=== PATIENT | female | born 1975 | race Caucasian/White ===

== ENCOUNTER 2022-04-15 00:21 | Emergency (ER) | payer OTHER, MEDICAID, SELFPAY ==
[2022-04-15 00:30] VITALS: BP 165/96; PULSE 71; RESP 16; TEMP 36.7; O2SAT 100
--- NOTE | 2022-04-15 00:37 | ED.GENADUL_ITS ---
Discharge Plan Disposition Patient Disposition: HOME Condition: Good Discharge Details Clinical Impression: Pain, dental ED Provider: Camron Davila Home Meds and New Rx's Prescriptions: New clindamycin HCl 150 mg capsule 450 mg PO TID 7 Days Qty: 63 0RF Discharge Instructions Instructions: Toothache (ED) Additional Instructions: The block we administered should help improve your pain. Please take 800 mg of ibuprofen every 6 hours and 1000 mg of Tylenol every 6 hours to help with the inflammation and pain. These are the maximum doses. Please take the antibiotic as directed to help with the infection in your tooth. Please use the dental list that we have provided to contact the dentist for prompt follow-up and evaluation for tooth removal. If you notice any worsening of your symptoms, or any new symptoms such as difficulty swallowing, difficulty breathing, vomiting, diarrhea, fever, chills, shortness of breath, chest pain, numbness, weakness, or fainting , please return immediately to the emergency department for reevaluation. Please follow up with your primary care provider as soon as possible for reassessment and reevaluation. As always, it was a pleasure participating in your medical care today. Medical Decision Making 46-year-old female presents today for evaluation of left lower dental pain. The patient states that for the last week she has had this pain. She has not yet been able to see a dentist. She denies any difficulty swallowing or drinking. She has been taking Tylenol but it has not been helping. She has not started on any antibiotics. No other complaints at this time. No other modifying factors. Poor dentition of the posterior left lower molar. No evidence of periapical abscess. No evidence of Ludewig's angina. Patient elected for dental block. Dental block was administered. Patient had complete resolution of her pain. We will start on clindamycin secondary to her allergies. Discussed red flags which to return. I have extensively reviewed the treatment plan and discharge instructions with the patient. I have addressed all patient concerns at this time. The patient was made aware of what symptoms to monitor for that would warrant a return to the emergency department. Discussed the plan with the patient, they demonstrate verbal understanding and agreement with our assessment and plan at this time. The documentation in this chart was dictated using [employer] dictation software. Please excuse any dictation errors. HPI General Date/Time Provider Initiated Documentation: 04/15/22 00:37 . HPI Narrative: 46-year-old female presents today for evaluation of left lower dental pain. The patient states that for the last week she has had this pain. She has not yet been able to see a dentist. She denies any difficulty swallowing or drinking. She has been taking Tylenol but it has not been helping. She has not started on any antibiotics. No other complaints at this time. No other modifying factors. Related Data Home Medications Medication Instructions Recorded Confirmed clindamycin HCl 150 mg capsule 450 mg PO TID 7 days #63 caps 04/15/22 duloxetine 60 mg capsule,delayed 120 mg PO DAILY 04/15/22 04/15/22 release sprinkle epinephrine 0.3 mg/0.3 mL PRN 04/15/22 injection, auto-injector norethindrone acetate 5 mg tablet 5 mg PO DAILY 04/15/22 04/15/22 topiramate 25 mg tablet 25 mg PO BID 04/15/22 04/15/22 valacyclovir 1 gram tablet 1,000 mg PO DAILY 04/15/22 04/15/22 Previous Rx's Medication Instructions Recorded clindamycin HCl 150 mg capsule 450 mg PO TID 7 days #63 caps 04/15/22 Allergies Allergy/AdvReac Type Severity Reaction Status Date / Time acetaminophen [From Vicodin] Allergy Unverified 04/15/22 00:33 erythromycin base Allergy Unverified 04/15/22 00:33 hydrocodone [From Vicodin] Allergy Unverified 04/15/22 00:33 Penicillins Allergy Unverified 04/15/22 00:32 Sulfa (Sulfonamide Allergy Unverified 04/15/22 00:32 Antibiotics) General Stated Complaint: DentalOral ROXANNA: 4 Review of Systems All systems reviewed & are unremarkable except as noted in HPI and below PFSH All Active Problems Pain, dental (Acute) Social History Smoking/Tobacco Use Status: Never Smoking risk assessment performed?: Yes Substance use type: does not use Exam Narrative Exam Narrative: 1.Const: Well-nourished, Well-developed, appearing stated age 2.Eyes: PERRL, no conjunctival injection, and symmetrical lids. 3.ENT: Atraumatic external nose and ears. Moist MM. Neck: Symmetric, trachea midline, No thyromegaly. Poor dentition for the posterior left lower molars. No evidence of a periapical abscess. 4.CVS: +S1/S2, No murmurs or gallops. Peripheral pulses 2+ and equal in all extremities. Brisk capillary refill in all extremities. 5.RESP: Unlabored respiratory effort. Clear to auscultation bilaterally. No wheezes rales or rhonchi 6.GI: Soft, Nontender/Nondistended, No hepatosplenomegaly. No guarding or rebound. 7.MSK: Normocephalic/Atraumatic, Extremities w/o deformity or ttp No cyanosis or clubbing, Normal movement of all extremities 8.Skin: Warm, Dry. No rashes or lesions. 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 Sensation grossly intact, no focal neurologic deficits. 10.Psych: (AAO) x3. Appropriate mood and affect For Course Vital Signs Vital signs: Vital Signs Temperature 36.7 C 04/15/22 00:30 Pulse 71 04/15/22 00:30 Respiratory Rate 16 04/15/22 00:30 Blood Pressure 165/96 H 04/15/22 00:30 Pulse Oximetry 100 04/15/22 00:30 Temperature 36.7 C 04/15/22 00:30 Temperature Source Tympanic 04/15/22 00:30 Pulse 71 04/15/22 00:30 Respiratory Rate 16 04/15/22 00:30 Respiratory Effort 04/15/22 00:30 Blood Pressure 165/96 H 04/15/22 00:30 Blood Pressure Position Sitting 04/15/22 00:30 Pulse Oximetry 100 04/15/22 00:30 Pain Level 9 04/15/22 00:30 Procedures Nerve Block Nerve Block 1: Time out performed: Yes Local Anesthetic: Bupivicaine 0.5% Amount of anesthesia used (mL): 5 Side: left Intraoral Nerve Block: inferior alveolar Procedure Successful: Yes Patient Tolerated Procedure: well and no complications Complications: none
[2022-04-15] MEDS: Clindamycin 150 MG CAP, 12 CAPS/BTL 450 MG PO (00:40)
[2022-04-15] MEDS: Ibuprofen 800 MG TAB 1600 MG PO (00:40)
== END 2022-04-15 00:54 | disposition home or self-care (01) ==
LOC: ER 00:52
PROVIDERS: Emergency Provider Student in an Organized Health Care Education/Training Program; PCP Student in an Organized Health Care Education/Training Program
DX: K08.89 Other specified disorders of teeth and supporting structures (principal)
CPT/HCPCS: 64400; 99283; 99284

== ENCOUNTER 2022-06-01 20:26 | Emergency (ER) | payer OTHER, MEDICAID, SELFPAY ==
[2022-06-01 20:33] VITALS: BP 180/136; PULSE 88; RESP 16; TEMP 36.9; O2SAT 97
--- NOTE | 2022-06-01 21:21 | ED.GENADUL_ITS ---
Discharge Plan Disposition Patient Disposition: Home Condition: Improving Discharge Details Clinical Impression: Pain, dental Primary Care Provider: Samra Pardo ED Provider: Selvin Soria Home Meds and New Rx's Prescriptions: Continued valacyclovir 1 gram Tablet 1,000 mg PO DAILY topiramate 25 mg Tablet 25 mg PO BID norethindrone acetate 5 mg Tablet 5 mg PO DAILY epinephrine 0.3 mg/0.3 mL Auto-Injector PRN duloxetine 60 mg Capsule, Delayed Rel Sprinkle 120 mg PO DAILY Medical Decision Making 47-year-old female, smoker, presents for 1 month history of left dental pain, on clindamycin for the past 10 days, worsening pain over the past 24 hours. Lyvq-qtx-bifajup medications not helping with symptoms. She is scheduled to see her dentist tomorrow morning at 9 AM. Clinically she appears well, nontoxic, afebrile, no trismus, airway is patent, no obvious dental abscess. Discussed options, she is agreeable to a dental block. Dental block performed with success. Patient reports feeling much improvement. Will provide viscous lidocaine to go home with so she may use overnight if symptoms were to return. Otherwise she will follow-up with her dentist tomorrow morning as already scheduled I was later told that the patient was reporting that her pain was not resolved completely but had improved. We were waiting for the take-home pack of the viscous lidocaine to be brought down. I did request that her blood pressure be rechecked. When the RN went to check the blood pressure she stated that she did not want to have her blood pressure checked as she figures it would be high given the pain she was in. She did not want to wait for written discharge instructions. This documentation was generated using [employer] system, please disregard any oddities of phrase or misspellings. Medical Records Medical records reviewed: Yes I reviewed the patient's medical records. Sign Out No HPI General Mode of arrival: ambulatory . Date/Time Provider Initiated Documentation: 06/01/22 21:00 . Limitations to Documentation: no limitations . Information obtained by: patient and family . History of Present Illness 47 year old F presents to the emergency department with the chief complaint of L sided dental pain, described as severe, with intensity rated at 10. Quality is described as aching, and is localized to the mouth (left lower). Patient reports no radiation. Patient started experiencing this month(s) (worse x 1 day) and it has been constant. No relieving factors improve symptom(s), No exacerbating factors reported . Patient notes no other symptoms.. Patient did receive the following treatments prior to arrival, other (clindamycin, seeing dentist tomorrow) Related Data Home Medications Medication Instructions Recorded Confirmed duloxetine 60 mg capsule,delayed 120 mg PO DAILY 04/15/22 06/01/22 release sprinkle epinephrine 0.3 mg/0.3 mL PRN 04/15/22 injection, auto-injector norethindrone acetate 5 mg tablet 5 mg PO DAILY 04/15/22 06/01/22 topiramate 25 mg tablet 25 mg PO BID 04/15/22 06/01/22 valacyclovir 1 gram tablet 1,000 mg PO DAILY 04/15/22 06/01/22 Allergies Allergy/AdvReac Type Severity Reaction Status Date / Time acetaminophen [From Vicodin] Allergy Unverified 06/01/22 20:37 erythromycin base Allergy Unverified 06/01/22 20:37 hydrocodone [From Vicodin] Allergy Unverified 06/01/22 20:37 Penicillins Allergy Unverified 06/01/22 20:37 Sulfa (Sulfonamide Allergy Unverified 06/01/22 20:37 Antibiotics) General Stated Complaint: DentalOral ROXANNA: 4 Review of Systems Constitutional Constitutional: Denies fever(s) ENT Ears, Nose, Mouth, and Throat: Reports mouth pain, Denies neck pain and Denies sore throat Cardiovascular Cardiovascular: Denies chest pain and Denies dyspnea Respiratory Respiratory: Denies dyspnea Gastrointestinal Gastrointestinal: Denies abdominal pain Musculoskeletal Musculoskeletal: Denies neck pain Integumentary/Breasts Skin/Breast: Denies rash PFSH All Active Problems (Updated 06/01/22 @ 23:18 by BRIANA Pretty) Pain, dental (Acute) Social History Smoking/Tobacco Use Status: Never Smoking risk assessment performed?: Yes Substance use type: does not use Exam Const General: cooperative, healthy appearing, comfortable and no acute distress Orientation: alert and awake HENOR Head: normal to inspection, normocephalic and atraumatic General nose exam: external nose normal Face and sinus: normal facial exam Mouth: moist mucous membranes Teeth image: 1. Tenderness, multiple dental carry-decay down to the buccal mucosa. Airway is patent. No trismus. No obvious pointing abscess or drainage. Throat: posterior oropharynx normal Eyes General: appearance normal, both eyes and all related structures Conjunctivae: conjunctivae normal Neck Neck: normal visual inspection, full ROM, no lymphadenopathy, no meningeal signs, trachea midline, supple and nontender Resp Effort & Inspection: normal respiratory effort and able to speak in complete sentences Skin General skin exam: no rashes or lesions noted Neuro General: patient alert, patient awake, moves all extremities and no focal motor deficits Sensory Exam: no sensory deficits noted Psych Appearance: grossly normal Mental Status: mental status grossly normal Course Vital Signs Vital signs: Vital Signs Temperature 36.9 C 06/01/22 20:33 Pulse 88 06/01/22 20:33 Respiratory Rate 16 06/01/22 20:33 Blood Pressure 180/136 H 06/01/22 20:33 Pulse Oximetry 97 06/01/22 20:33 Temperature 36.9 C 06/01/22 20:33 Temperature Source Temporal Artery Scan 06/01/22 20:33 Pulse 88 06/01/22 20:33 Respiratory Rate 16 06/01/22 20:33 Respiratory Effort 06/01/22 20:33 Blood Pressure 180/136 H 06/01/22 20:33 Blood Pressure Position Sitting 06/01/22 20:33 Pulse Oximetry 97 06/01/22 20:33 Oxygen Delivery Method Room Air 06/01/22 20:33 Oxygen Flow Rate 0 06/01/22 20:33 Pain Level 10 06/01/22 21:18 Procedures Nerve Block Nerve Block 1: Time out performed: Yes Local Anesthetic: Lidocaine 2%, Bupivicaine 0.5% and other anesthetic ([id number] mixture) Amount of anesthesia used (mL): 3 Side: left Intraoral Nerve Block: inferior alveolar Procedure Successful: Yes Patient Tolerated Procedure: well and no complications Complications: none
[2022-06-01] MEDS: Lidocaine 2% Viscous 15 ML CUP PO (21:45)
== END 2022-06-01 22:07 | disposition home or self-care (01) ==
PROVIDERS: Emergency Provider Physician Assistant; PCP Student in an Organized Health Care Education/Training Program
DX: K08.89 Other specified disorders of teeth and supporting structures (principal)
CPT/HCPCS: 64400

== ENCOUNTER 2022-08-01 20:21 | Emergency (ER) | payer OTHER, MEDICAID, SELFPAY ==
[2022-08-01 20:24] VITALS: BP 138/77; PULSE 83; RESP 16; TEMP 36.9; O2SAT 100
[2022-08-01] MEDS: Normal Saline 1,000 ML 1000 ML IV (20:50)
[2022-08-01] MEDS: Ketorolac 15 MG/ML VIAL IVP (20:50)
[2022-08-01] MEDS: methylPREDNISolone SUCC 125 MG VIAL IVP (20:55)
[2022-08-01] MEDS: diphenhydrAMINE 50 MG/ML VIAL 25 MG IVP (20:56)
[2022-08-01] MEDS: Prochlorperazine 10 MG/2 ML VIAL IVP (21:06)
[2022-08-01] MEDS: ACETAMINOPHEN 1,000 MG/100 ML BTL 400 MG IVPB (21:10)
--- NOTE | 2022-08-01 21:45 | W.ED.GENAD ---
Discharge Plan Disposition Patient Disposition: Home Condition: Good Discharge Details Chief Complaint: Headache Clinical Impression: Migraine headache Primary Care Provider: Samra Pardo ED Provider: Camron Davila Home Meds and New Rx's Prescriptions: No Action valacyclovir 1 gram Tablet 1,000 mg PO DAILY topiramate 25 mg Tablet 25 mg PO BID norethindrone acetate 5 mg Tablet 5 mg PO DAILY epinephrine 0.3 mg/0.3 mL Auto-Injector PRN duloxetine 60 mg Capsule, Delayed Rel Sprinkle 120 mg PO DAILY propranolol 60 mg capsule,extended release 24 hr 60 mg PO DAILY Label Comments: TAKE ONE CAPSULE BY MOUTH EVERY DAY Discharge Instructions Instructions: General Headache (ED) Additional Instructions: At this time your headache appears consistent with a migraine headache. Please stay well-hydrated, take Tylenol and Motrin as needed for pain. Avoid foods that are heavy and nitrates and nitrates. If you notice any worsening of your symptoms, or any new symptoms such as vomiting, diarrhea, fever, chills, shortness of breath, chest pain, numbness, weakness, or fainting , please return immediately to the emergency department for reevaluation. Please follow up with your primary care provider as soon as possible for reassessment and reevaluation. As always, it was a pleasure participating in your medical care today. Referrals: Samra Pardo [Primary Care Provider] - Medical Decision Making 47-year-old female with a past medical history of chronic migraines which she has had a notable work-up within the past few years, performed in [facility], which included imaging, who presents today for evaluation of headache. Patient states that her headache began this morning when she woke up, it was gradual in onset. It worsened throughout the day. She describes it as an achy pressure sensation in the front of her head. Worsened with lights and loud noises. She states that it is identical in nature and consistency to her previous headaches. She denies any neck pain or fever. The patient denies any headache red flags of worst headache of life, thunderclap headache, neck pain, fever, chills, concerning family history of polycystic kidney disease, Marfan syndrome, Sylvia-Danlos syndrome, abdominal aortic aneurysm, aortic dissection, or intracranial aneurysm. Symptoms minimally improved with NSAIDs. No other complaints at this time. Exam demonstrates no concerning meningeal signs. Headache demonstrates no neurologic deficits. Symptoms appear clinically consistent with the patient's migraines. She has had a negative imaging work-up in the past, no indication for reimaging at this time. We will give Solu-Medrol, Toradol, Tylenol, Compazine, and Benadryl and fluids. Will monitor closely and reassess. 9:53 PM Patient has been reassessed, headache is nearly completely resolved. Patient feels well and is requesting discharge home. Repeat neurologic assessment shows no focal neurologic deficits. Symptoms consistent with migraine headache. Discussed red flags for which to return. I have extensively reviewed the treatment plan and discharge instructions with the patient. I have addressed all patient concerns at this time. The patient was made aware of what symptoms to monitor for that would warrant a return to the emergency department. Discussed the plan with the patient, they demonstrate verbal understanding and agreement with our assessment and plan at this time. The documentation in this chart was dictated using [employer] dictation software. Please excuse any dictation errors. HPI General Date/Time Provider Initiated Documentation: 08/01/22 20:22. HPI Narrative: 47-year-old female with a past medical history of chronic migraines which she has had a notable work-up within the past few years, performed in [facility], which included imaging, who presents today for evaluation of headache. Patient states that her headache began this morning when she woke up, it was gradual in onset. It worsened throughout the day. She describes it as an achy pressure sensation in the front of her head. Worsened with lights and loud noises. She states that it is identical in nature and consistency to her previous headaches. She denies any neck pain or fever. The patient denies any headache red flags of worst headache of life, thunderclap headache, neck pain, fever, chills, concerning family history of polycystic kidney disease, Marfan syndrome, Sylvia-Danlos syndrome, abdominal aortic aneurysm, aortic dissection, or intracranial aneurysm. Symptoms minimally improved with NSAIDs. No other complaints at this time. Related Data Home Medications Medication Instructions Recorded Confirmed duloxetine 60 mg capsule,delayed 120 mg PO DAILY 04/15/22 08/01/22 release sprinkle epinephrine 0.3 mg/0.3 mL PRN 04/15/22 injection, auto-injector norethindrone acetate 5 mg tablet 5 mg PO DAILY 04/15/22 08/01/22 topiramate 25 mg tablet 25 mg PO BID 04/15/22 08/01/22 valacyclovir 1 gram tablet 1,000 mg PO DAILY 04/15/22 08/01/22 propranolol 60 mg capsule,24 60 mg PO DAILY 08/01/22 08/01/22 hr,extended release Allergies Allergy/AdvReac Type Severity Reaction Status Date / Time acetaminophen [From Vicodin] Allergy Unverified 08/01/22 20:28 erythromycin base Allergy Unverified 08/01/22 20:28 hydrocodone [From Vicodin] Allergy Unverified 08/01/22 20:28 Penicillins Allergy Unverified 08/01/22 20:28 Sulfa (Sulfonamide Allergy Unverified 08/01/22 20:28 Antibiotics) General Stated Complaint: Headache ROXANNA: 3 Review of Systems All systems reviewed & are unremarkable except as noted in HPI and below PFSH All Active Problems Migraine headache (Chronic) Social History Smoking/Tobacco Use Status: Never Smoking risk assessment performed?: Yes Substance use type: does not use Exam Narrative Exam Narrative: 1.Const: Well-nourished, Well-developed, appearing stated age 2.Eyes: PERRL, no conjunctival injection, and symmetrical lids. 3.ENT: Atraumatic external nose and ears. Moist MM. Neck: Symmetric, trachea midline, No thyromegaly. Patient demonstrates good movement of cervical neck. There is no nuchal rigidity, no nuchal tenderness. Patient is able to flex the neck without any difficulty or significant pain. Negative Kernig's and Brudzinski sign. 4.CVS: +S1/S2, No murmurs or gallops. Peripheral pulses 2+ and equal in all extremities. Brisk capillary refill in all extremities. 5.RESP: Unlabored respiratory effort. Clear to auscultation bilaterally. No wheezes rales or rhonchi 6.GI: Soft, Nontender/Nondistended, No hepatosplenomegaly. No guarding or rebound. 7.MSK: Normocephalic/Atraumatic, Extremities w/o deformity or ttp No cyanosis or clubbing, Normal movement of all extremities 8.Skin: Warm, Dry. No rashes or lesions. 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 Sensation grossly intact, no focal neurologic deficits. All 6 cardinal planes of vision are fully intact. No evidence of rotatory or vertical nystagmus. The patient demonstrated a normal rjwoxr-stmx-enqolj, good dexterity. There was no evidence of dysdiadochokinesia. Patient was able to ambulate without difficulty. There was no wide-based gait. Romberg testing was normal. Ozuw-is-ffol testing was normal. Sensation was intact bilaterally as well as muscle strength bilaterally for all extremities. Patient was able to verbalize butter cup with no slurring, or miss pronunciation. 10.Psych: (AAO) x3. Appropriate mood and affect Course Vital Signs Vital signs: Vital Signs Temperature 36.9 C 08/01/22 20:24 Pulse 83 08/01/22 20:24 Respiratory Rate 16 08/01/22 20:24 Blood Pressure 138/77 08/01/22 20:24 Pulse Oximetry 100 08/01/22 20:24 Temperature 36.9 C 08/01/22 20:24 Temperature Source Oral 08/01/22 20:24 Pulse 83 08/01/22 20:24 Respiratory Rate 16 08/01/22 20:24 Respiratory Effort 08/01/22 20:24 Blood Pressure 138/77 08/01/22 20:24 Blood Pressure Position Supine 08/01/22 20:24 Pulse Oximetry 100 08/01/22 20:24 Oxygen Delivery Method Room Air 08/01/22 20:24 Oxygen Flow Rate 0 08/01/22 20:24 Pain Level 9 08/01/22 20:24
[2022-08-01 21:55] VITALS: BP 120/63; PULSE 70; RESP 16; TEMP 36.9; O2SAT 98
== END 2022-08-01 21:59 | disposition home or self-care (01) ==
PROVIDERS: Emergency Provider Student in an Organized Health Care Education/Training Program; PCP Student in an Organized Health Care Education/Training Program
DX: G43.909 Migraine, unspecified, not intractable, without status migrainosus (principal)
CPT/HCPCS: 96361; 96374; 96375; 99284; J0131; J0780; J1200; J1885; J2930

== ENCOUNTER 2022-08-19 11:32 | Emergency (ER) | payer OTHER, MEDICAID, SELFPAY ==
[2022-08-19 11:40] VITALS: BP 140/89; PULSE 94; RESP 16; TEMP 36.7; O2SAT 96
--- NOTE | 2022-08-19 12:17 | ED.GENADUL_ITS ---
Discharge Plan Disposition Patient Disposition: Home Condition: Stable Discharge Details Clinical Impression: Migraine headache Primary Care Provider: Samra Pardo ED Provider: Skyla Heredia Home Meds and New Rx's Prescriptions: New prochlorperazine maleate [Compazine] 10 mg tablet 10 mg PO Q6H PRNQty: 10 0RF Continued valacyclovir 1 gram Tablet 1,000 mg PO DAILY topiramate 25 mg Tablet 25 mg PO BID norethindrone acetate 5 mg Tablet 5 mg PO DAILY epinephrine 0.3 mg/0.3 mL Auto-Injector PRN duloxetine 60 mg Capsule, Delayed Rel Sprinkle 120 mg PO DAILY propranolol 60 mg capsule,extended release 24 hr 60 mg PO DAILY Patient Comments: TAKE ONE CAPSULE BY MOUTH EVERY DAY Discharge Instructions Instructions: General Headache (ED) Additional Instructions: Please follow-up with your doctor, you may take the Compazine as needed for return of headache, this is a nausea medication but can sometimes help with headaches Return earlier should you have new or worsening complaints Referrals: Samra Pardo [Primary Care Provider] - Discharge Data Discharge Date/Time-TO BE ENTERED AT DEPARTURE: 08/19/22 15:20 Medical Decision Making This 47-year-old female presents with typical migraine headache, initially tried Imitrex which did not alleviate patient's symptoms Therefore I administered Compazine and fluids which completely alleviated patient's headache, she is feeling marked improvement, her vitals are stable and she is discharged home in stable condition with stable vitals Return precautions were reviewed and patient expressed understanding HPI General Date/Time Provider Initiated Documentation: 08/19/22 12:03 . HPI Narrative: This 47-year-old female presents with migraine headache for the past 3 days. She states this is a typical migraine for her. She denies any changes in vision, fever, or stiff neck. She denies worst headache of life. She denies any risk of carbon monoxide exposure. Related Data Home Medications Medication Instructions Recorded Confirmed duloxetine 60 mg capsule,delayed 120 mg PO DAILY 04/15/22 08/19/22 release sprinkle epinephrine 0.3 mg/0.3 mL PRN 04/15/22 injection, auto-injector norethindrone acetate 5 mg tablet 5 mg PO DAILY 04/15/22 08/19/22 topiramate 25 mg tablet 25 mg PO BID 04/15/22 08/19/22 valacyclovir 1 gram tablet 1,000 mg PO DAILY 04/15/22 08/19/22 propranolol 60 mg capsule,24 60 mg PO DAILY 08/01/22 08/19/22 hr,extended release prochlorperazine maleate 10 mg 10 mg PO Q6H PRN #10 tabs 08/19/22 tablet (Compazine) Previous Rx's Medication Instructions Recorded prochlorperazine maleate 10 mg 10 mg PO Q6H PRN #10 tabs 08/19/22 tablet (Compazine) Allergies Allergy/AdvReac Type Severity Reaction Status Date / Time acetaminophen [From Vicodin] Allergy Unverified 08/19/22 11:43 erythromycin base Allergy Unverified 08/19/22 11:43 hydrocodone [From Vicodin] Allergy Unverified 08/19/22 11:43 Penicillins Allergy Unverified 08/19/22 11:43 Sulfa (Sulfonamide Allergy Unverified 08/19/22 11:43 Antibiotics) General Stated Complaint: Headache ROXANNA: 4 PFSH All Active Problems (Updated 08/19/22 @ 14:38 by BRIANA Ferrell) Migraine headache (Chronic) Social History Smoking/Tobacco Use Status: Never Smoking risk assessment performed?: Yes Alcohol Intake: current Alcohol Intake frequency: holidays/special occasions only Substance use type: does not use Do you feel safe at home: Yes Do you feel safe in your relationship?: Yes Exam Narrative Exam Narrative: Patient is fully alert and oriented with a nonfocal neurological exam, she has no meningismus Is ambulatory with steady gait Respirations, lungs clear to auscultation bilaterally, pupils equal round reactive to light and accommodation Course Vital Signs Vital signs: Vital Signs Temperature 36.7 C 08/19/22 11:40 Pulse 94 H 08/19/22 11:40 Respiratory Rate 16 08/19/22 11:40 Blood Pressure 140/89 08/19/22 11:40 Pulse Oximetry 96 08/19/22 11:40 Temperature 36.7 C 08/19/22 11:40 Temperature Source Tympanic 08/19/22 11:40 Pulse 94 H 08/19/22 11:40 Respiratory Rate 16 08/19/22 11:40 Respiratory Effort Normal 08/19/22 11:42 Blood Pressure 140/89 08/19/22 11:40 Blood Pressure Position Sitting 08/19/22 11:40 Pulse Oximetry 96 08/19/22 11:40 Oxygen Delivery Method Room Air 08/19/22 11:40 Oxygen Flow Rate 0 08/19/22 11:40 Pain Level 10 08/19/22 11:45
[2022-08-19] MEDS: SUMAtriptan 25 MG TAB PO (12:50)
[2022-08-19] MEDS: Prochlorperazine 10 MG/2 ML VIAL IVP (13:44)
[2022-08-19] MEDS: diphenhydrAMINE 50 MG/ML VIAL 25 MG IVP (13:44)
== END 2022-08-19 15:20 | disposition home or self-care (01) ==
PROVIDERS: Emergency Provider Physician Assistant; PCP Student in an Organized Health Care Education/Training Program
DX: G43.909 Migraine, unspecified, not intractable, without status migrainosus (principal)
CPT/HCPCS: 96374; 96375; 99284; J0780; J1200

== ENCOUNTER 2022-10-07 20:28 | Emergency (ER) | payer MEDICAID, SELFPAY ==
[2022-10-07 20:31] VITALS: BP 161/71; PULSE 75; RESP 16; TEMP 37.1; O2SAT 98
--- NOTE | 2022-10-07 21:00 | ED.GENADUL_ITS ---
Discharge Plan Disposition Patient Disposition: Home Discharge Details Clinical Impression: Headache Primary Care Provider: Samra Pardo ED Provider: Joe Brewer Home Meds and New Rx's Prescriptions: New ketorolac 10 mg tablet 10 mg PO TID PRN (Reason: pain) Qty: 10 0RF Continued valacyclovir 1 gram Tablet 1,000 mg PO DAILY topiramate 25 mg Tablet 25 mg PO BID norethindrone acetate 5 mg Tablet 5 mg PO DAILY epinephrine 0.3 mg/0.3 mL Auto-Injector PRN duloxetine 60 mg Capsule, Delayed Rel Sprinkle 120 mg PO DAILY propranolol 60 mg capsule,extended release 24 hr 60 mg PO DAILY Patient Comments: TAKE ONE CAPSULE BY MOUTH EVERY DAY prochlorperazine maleate [Compazine] 10 mg tablet 10 mg PO Q6H PRNQty: 10 0RF Discharge Instructions Instructions: General Headache (ED) Additional Instructions: Please continue to take your normally prescribed medications especially your propranolol as it was noted that you did have slightly elevated blood pressure today in the emergency department. Otherwise stay well-hydrated and get plenty of rest. Please keep your follow-up appoint with your primary care provider for next week for recheck of your migraine or feel free to return for any new or significant worsening of symptoms. Referrals: Primary Care Provider [Outside] Medical Decision Making Patient presenting to the emergency department with chief complaint of headache. Patient has long ongoing migraines which has had multiple work-ups at tertiary care facilities with no clear diagnosis reported by patient. She states that yesterday she started with a dull headache that is increased in the last 48 hours. She has taken acetaminophen but this has not helped her headache. Patient states mild nausea otherwise denies any focal neurological deficits, numbness tingling, weakness, change in vision, chest pain belly pain or other symptoms. Physical exam is unremarkable with normal neurological exam, normal cardiac and respiratory exam. At this time I feel that we do not need any advanced imaging, LP, or even lab work given patient's long ongoing history of migraine headache with previous work-ups and no significant change in symptoms. We will treat symptomatically with fluids, ketorolac, Compazine, and Benadryl and reassess patient. 2150-reassessed patient and patient stated almost near resolution of symptoms and is requesting to go home. Will prescribe patient oral ketorolac and Compazine to use at home for any further symptoms. Patient states she has a appointment already set up with her primary care provider next week which I feel is reasonable to follow-up and establish primary care services and recheck of her migraine. After discussion of diagnosis and plan of care patient has no further needs, questions, or concerns and states clear understanding to return to the emergency department for any worsening symptoms. This documentation was generated using [employer] dictation system, please disregard any oddities of phrase or misspellings. HPI General Mode of arrival: ambulatory . Date/Time Provider Initiated Documentation: 10/07/22 20:29 . Limitations to Documentation: no limitations . Information obtained by: patient, RN notes reviewed and old records reviewed . History of Present Illness 47 year old F presents to the emergency department with the chief complaint of Headache, described as moderate, severe and similar to prior episodes, with intensity rated at 8. Quality is described as sharp, and is localized to the head. Patient reports no radiation. Patient started experiencing this day(s) (2) and it has been constant. No relieving factors improve symptom(s), No exacerbating factors reported . Patient did receive the following treatments prior to arrival, other (A cetaminophen) Related Data Home Medications Medication Instructions Recorded Confirmed duloxetine 60 mg capsule,delayed 120 mg PO DAILY 04/15/22 08/19/22 release sprinkle epinephrine 0.3 mg/0.3 mL PRN 04/15/22 injection, auto-injector norethindrone acetate 5 mg tablet 5 mg PO DAILY 04/15/22 08/19/22 topiramate 25 mg tablet 25 mg PO BID 04/15/22 08/19/22 valacyclovir 1 gram tablet 1,000 mg PO DAILY 04/15/22 08/19/22 propranolol 60 mg capsule,24 60 mg PO DAILY 08/01/22 08/19/22 hr,extended release ketorolac 10 mg tablet 10 mg PO TID PRN pain #10 tabs 10/07/22 prochlorperazine maleate 10 mg 10 mg PO Q6H PRN #10 tabs 10/07/22 tablet (Compazine) Previous Rx's Medication Instructions Recorded ketorolac 10 mg tablet 10 mg PO TID PRN pain #10 tabs 10/07/22 prochlorperazine maleate 10 mg 10 mg PO Q6H PRN #10 tabs 10/07/22 tablet (Compazine) Allergies Allergy/AdvReac Type Severity Reaction Status Date / Time acetaminophen [From Vicodin] Allergy Unverified 08/19/22 11:43 erythromycin base Allergy Unverified 08/19/22 11:43 hydrocodone [From Vicodin] Allergy Unverified 08/19/22 11:43 Penicillins Allergy Unverified 08/19/22 11:43 Sulfa (Sulfonamide Allergy Unverified 08/19/22 11:43 Antibiotics) General Stated Complaint: Headache ROXANNA: 3 Review of Systems Constitutional Constitutional: Denies body ache(s), Denies chills, Denies fever(s) and Reports headache(s) Eyes Eyes: Denies change in vision ENT Ears, Nose, Mouth, and Throat: Denies dizziness and Reports headache(s) Cardiovascular Cardiovascular: Denies chest pain and Denies syncope Gastrointestinal Gastrointestinal: Reports nausea and Denies vomiting Neurologic Neurologic: Reports as per HPI, Denies dizziness, Denies syncope, Reports headache(s) and Denies sensory deficit PFSH All Active Problems (Updated 10/07/22 @ 21:58 by Joe Brewer NP) Headache (Acute) Social History Smoking/Tobacco Use Status: Never Smoking risk assessment performed?: Yes Alcohol Intake: current Alcohol Intake frequency: holidays/special occasions only Drug use: Never Substance use type: does not use Do you feel safe at home: Yes Do you feel safe in your relationship?: Yes Exam Const General: cooperative, healthy appearing, no acute distress and well groomed Orientation: alert, awake and oriented x3 HENMT Head: normal to inspection Ears: hearing grossly normal bilaterally and TM's normal bilaterally Mouth: oral mucosae normal and moist mucous membranes Throat: posterior oropharynx normal Eyes Visual Shelby: normal visual shelby by confrontation Alignment and Position: alignment normal Periorbital: periorbital findings normal Eyelids: eyelids normal Sclera: sclerae normal Cornea: corneas normal Pupils: PERRL EOM: EOM intact bilaterally Neck Neck: normal visual inspection, full ROM, no lymphadenopathy and no meningeal signs Resp Effort & Inspection: normal respiratory effort and able to speak in complete sentences Auscultation: clear to auscultation bilaterally Cardio Rate: regular rate Rhythm: regular rhythm Heart Sounds: S1 normal and S2 normal Neuro General: patient alert, patient awake, patient oriented x3, gait normal, tone normal, moves all extremities, CN's II-XI intact bilaterally and not confused Cognition: normal cognition Speech: speech normal Motor: muscle tone normal throughout, strength 5/5 throughout, no pronator drift, no movement abnormalities noted and no fasciculations Sensory Exam: no sensory deficits noted Coordination: [id number] test normal, Romberg test normal, Does not sway with eyes open, rapid alternating movement UE normal and rapid alternating movem ent LE normal Course Vital Signs Vital signs: Vital Signs Temperature 37.1 C 10/07/22 20:31 Pulse 75 10/07/22 20:31 Respiratory Rate 16 10/07/22 20:31 Blood Pressure 161/71 H 10/07/22 20:31 Pulse Oximetry 98 10/07/22 20:31 Temperature 37.1 C 10/07/22 20:31 Temperature Source Oral 10/07/22 20:31 Pulse 75 10/07/22 20:31 Respiratory Rate 16 10/07/22 20:31 Respiratory Effort Normal 10/07/22 20:34 Blood Pressure 161/71 H 10/07/22 20:31 Pulse Oximetry 98 10/07/22 20:31 Oxygen Delivery Method Room Air 10/07/22 20:31 Oxygen Flow Rate 0 10/07/22 20:31 Pain Level 10 10/07/22 20:34
[2022-10-07] MEDS: Ketorolac 30 MG/ML VIAL IVP (21:06)
[2022-10-07] MEDS: diphenhydrAMINE 50 MG/ML VIAL 25 MG IVP (21:06)
[2022-10-07] MEDS: Normal Saline 1,000 ML 1000 ML IV (21:06)
[2022-10-07] MEDS: Prochlorperazine 10 MG/2 ML VIAL 5 MG IVP (21:07)
--- NOTE | 2022-10-07 21:50 | NUR.NOTE ---
Nursing Note: Report given to Raquel BASURTO
[2022-10-07 22:20] VITALS: BP 151/74; PULSE 76; RESP 16; O2SAT 99
== END 2022-10-07 22:35 | disposition home or self-care (01) ==
PROVIDERS: Emergency Provider Nurse Practitioner Family; PCP Student in an Organized Health Care Education/Training Program
DX: R51.9 Headache, unspecified (principal); R11.0 Nausea; Z86.69 Personal history of other diseases of the nervous system and sense organs
CPT/HCPCS: 96361; 96374; 96375; 99284; J0780; J1200; J1885

== ENCOUNTER 2022-10-11 18:11 | Emergency (ER) | payer MEDICAID, SELFPAY ==
--- NOTE | 2022-10-11 18:15 | DI.CT_ITS ---
Exam(s) CT ABDOMEN PELVIS W EXAM: CT ABDOMEN PELVIS W CLINICAL HISTORY: right sided abdominal pain. TECHNIQUE: Imaging Protocol: Axial computed tomography images with coronal and sagittal reformatted images were created and reviewed CONTRAST MATERIAL: Intravenous: Omnipaque-350 100cc Oral: None COMPARISON: No exams were available for comparison FINDINGS: VISUALIZED LUNG BASES: No nodules nor pleural effusions evident. ABDOMEN: There is no ascites. LIVER: There are no focal hepatic lesions evident. No dilated intrahepatic ducts. GALLBLADDER/BILIARY: The gallbladder surgically absent. CBD is not dilated. PANCREAS: No evidence of pancreatic mass nor dilatation of the pancreatic duct. SPLEEN: Spleen is not enlarged. No obvious intrasplenic lesions. Splenic and portal veins are paten t. ADRENALS: There are no significant adrenal masses. KIDNEYS:There is a benign cyst in the lateral cortex of the right kidney noted which measures 1.2 x 1 .0 cm. Does not require further workup. No other focal findings in the kidneys. No calculi. No hy dronephrosis.. ABDOMINAL AORTA: Abdominal aorta is not enlarged. LYMPH NODES:There is no retroperitoneal nor paraaortic adenopathy. ABDOMINAL WALL: No evidence of significant anterior abdominal wall nor inguinal hernia. GI: There is no evidence of bowel obstruction, free air, nor abscess. PELVIS: GI: The appendix is surgically absent.No significant sigmoid diverticular disease. LYMPH NODES: There is no intrapelvic nor inguinal adenopathy. REPRODUCTIVE: Uterus upper normal size. There is a cyst in the right ovary measuring 2.4 by 2 cm. T he left ovary is not identified. URINARY BLADDER: No calculi nor obvious masses evident OSSEOUS: No fractures and no significant osseous lesions. IMPRESSION: 1. There is evidence of previous appendectomy and cholecystectomy. Biliary tree is not dilated. The re is no evidence of bowel obstruction. 2. There is a cyst in the right ovary measuring 2.4 x 2.0 cm. Can be followed with ultrasound. RADIATION DOSE DELIVERED: 1,552.17mGy.cm Total DLP DATA REPOSITORY: All CT scans at this facility are submitted to the National Radiology Data Registry (NRDR) Dose Index Registry (DIR) with the [employer] ([employer]). RADIATION OPTIMIZATION: All CT scans at this facility use at least one of these dose optimization te chniques: automated exposure control; mA and/or kV adjustment per patient size (includes targeted exa ms where dose is matched to clinical indication); or iterative reconstruction.
[2022-10-11 18:19] VITALS: PULSE 72; RESP 18; TEMP 36.7; O2SAT 98
[2022-10-11 18:20] VITALS: BP 128/83
--- NOTE | 2022-10-11 18:33 | ED.GENADUL_ITS ---
Discharge Plan Disposition Condition: Stable Discharge Details Chief Complaint: Abd Prob Clinical Impression: Abdominal pain Primary Care Provider: Samra Pardo ED Provider: Derek Soto Home Meds and New Rx's Prescriptions: No Action valacyclovir 1 gram Tablet 1,000 mg PO DAILY topiramate 25 mg Tablet 25 mg PO BID norethindrone acetate 5 mg Tablet 5 mg PO DAILY Patient Comments: not taking epinephrine 0.3 mg/0.3 mL Auto-Injector 0.3 ml IM PRN PRN duloxetine 60 mg Capsule, Delayed Rel Sprinkle 120 mg PO DAILY propranolol 60 mg capsule,extended release 24 hr 60 mg PO DAILY Patient Comments: TAKE ONE CAPSULE BY MOUTH EVERY DAY ketorolac 10 mg tablet 10 mg PO TID PRN (Reason: pain) Qty: 10 0RF prochlorperazine maleate [Compazine] 10 mg tablet 10 mg PO Q6H PRNQty: 10 0RF Medical Decision Making 47 yo female with with hx of chronic migraines, states she's had a cholecystectomy and appendectomy in the past, comes in with chief complaint of abdominal pain starting today. She notes it started suddenly today and has progressively worsened. Denies fevers, chills, vaginal bleeding/discharge, dyspnea, chest pain. She hasn't tried taking anything for her symptoms. She localizes the pain to the rlq and is tender here and in the ruq without guarding or rebound, no left sided tenderness, no guarding. Unclear etiology for his symptoms, concern for possible sbo vs pancreatitis vs kidney stone, will proceed with cbc, cmp, lipase, ua, ct abdomen/pelvis for further evaluation. pt will be signed out to oncoming provider pending results of labs, ct and reassessment after toradol, ivf, and zofran Differential Diagnosis Differential Diagnosis: sbo, kidney stone, pancreatitis, ovarian cyst Lab Data Lab results reviewed: Yes I reviewed the patient's lab results. HPI General Mode of arrival: ambulatory . Date/Time Provider Initiated Documentation: 10/11/22 18:14 . Limitations to Documentation: no limitations . Information obtained by: patient . History of Present Illness 47 year old F presents to the emergency department with the chief complaint of right sided a bdominal pain, described as moderate, Patient reports no radiation. Patient started experiencing this day(s) (1) and it has been constant. No relieving factors improve symptom(s), No exacerbating factors reported . Patient notes no other symptoms.. Patient did receive the following treatments prior to arrival, none Related Data Home Medications Medication Instructions Recorded Confirmed duloxetine 60 mg capsule,delayed 120 mg PO DAILY 04/15/22 10/11/22 release sprinkle epinephrine 0.3 mg/0.3 mL 0.3 ml IM PRN PRN 04/15/22 10/11/22 injection, auto-injector norethindrone acetate 5 mg tablet 5 mg PO DAILY 04/15/22 08/19/22 topiramate 25 mg tablet 25 mg PO BID 04/15/22 10/11/22 valacyclovir 1 gram tablet 1,000 mg PO DAILY 04/15/22 10/11/22 propranolol 60 mg capsule,24 60 mg PO DAILY 08/01/22 10/11/22 hr,extended release ketorolac 10 mg tablet 10 mg PO TID PRN pain #10 tabs 10/07/22 10/11/22 prochlorperazine maleate 10 mg 10 mg PO Q6H PRN #10 tabs 10/07/22 10/11/22 tablet (Compazine) Previous Rx's Medication Instructions Recorded ketorolac 10 mg tablet 10 mg PO TID PRN pain #10 tabs 10/07/22 prochlorperazine maleate 10 mg 10 mg PO Q6H PRN #10 tabs 10/07/22 tablet (Compazine) Allergies Allergy/AdvReac Type Severity Reaction Status Date / Time acetaminophen [From Vicodin] Allergy Unverified 10/11/22 18:20 erythromycin base Allergy Unverified 10/11/22 18:20 hydrocodone [From Vicodin] Allergy Unverified 10/11/22 18:20 Penicillins Allergy Unverified 10/11/22 18:20 Sulfa (Sulfonamide Allergy Unverified 10/11/22 18:20 Antibiotics) General Stated Complaint: Abd Prob ROXANNA: 3 Review of Systems All systems reviewed & are unremarkable except as noted in HPI and below Constitutional Constitutional: Denies chills, Denies fever(s) and Denies weakness Cardiovascular Cardiovascular: Denies chest pain and Denies dyspnea Respiratory Respiratory: Denies cough and Denies dyspnea Gastrointestinal Gastrointestinal: Denies nausea and Denies vomiting Musculoskeletal Musculoskeletal: Denies joint swelling Neurologic Neurologic: Denies weakness Psychiatric Psychiatric: Denies depression PFSH All Active Problems (Updated 10/11/22 @ 18:50 by Derek Soto MD) Headache (Acute) Abdominal pain (Acute) Social History Smoking/Tobacco Use Status: Never Smoking risk assessment performed?: Yes Alcohol Intake: current Alcohol Intake frequency: holidays/special occasions only Drug use: Never Substance use type: does not use Do you feel safe at home: Yes Do you feel safe in your relationship?: Yes Exam Const General: no acute distress Orientation: alert HENMT Head: normal to inspection Ears: external ears normal General nose exam: external nose normal Mouth: moist mucous membranes Eyes General: appearance normal, both eyes and all related structures Neck Neck: normal visual inspection Resp Effort & Inspection: normal respiratory effort and able to speak in complete sentences Cardio Rate: regular rate GI Palpation: soft and tender Skin General skin exam: no rashes or lesions noted Neuro General: patient alert and patient oriented x3 Extrem General: normal to inspection Psych Mental Status: mental status grossly normal Course Vital Signs Vital signs: Vital Signs Temperature 36.7 C 10/11/22 18:19 Pulse 72 10/11/22 18:19 Respiratory Rate 18 10/11/22 18:19 Pulse Oximetry 98 10/11/22 18:19 Temperature 36.7 C 10/11/22 18:19 Temperature Source Temporal Artery Scan 10/11/22 18:19 Pulse 72 10/11/22 18:19 Respiratory Rate 18 10/11/22 18:19 Respiratory Effort Normal, Non-Labored 10/11/22 18:20 Blood Pressure 128/83 10/11/22 18:20 Pulse Oximetry 98 10/11/22 18:19 Oxygen Delivery Method Room Air 10/11/22 18:19 Oxygen Flow Rate 0 10/11/22 18:19 Sign Out Sign Out Data: Sign Out Comment: Right sided abdominal pain, pending ct and reassessment. Last updated by Derek Soto MD at 10/11/22 18:49
[2022-10-11 18:36] LABS: Bilirubin Negative (Negative); Blood Trace-intact (Negative); Clarity Clear (Clear); Glucose Negative (Negative); Ketones Negative (Negative); Leukocyte Esterase Negative (Negative); Nitrite Negative (Negative); Specific Gravity 1.025 (1.005-1.025)
[2022-10-11 18:52] LABS: Bacteria Rare HPF (Negative); Crystals Few Amorphous HPF (Negative); Epithelial Cells Few HPF (Negative); RBC 0-2 HPF (0-2); WBC Negative HPF (0-5)
[2022-10-11] MEDS: Normal Saline 1,000 ML 1000 ML IV (18:52)
[2022-10-11 18:53] LABS: C & S Indicated? No; Casts 0-2 Hyaline LPF (Negative); Mucus Moderate (Negative)
[2022-10-11] MEDS: Ondansetron 4 MG/2 ML VIAL IVP (18:53)
[2022-10-11] MEDS: Ketorolac 15 MG/ML VIAL IVP (18:53)
[2022-10-11 18:54] LABS: Abs Immature Grans 0.02 10^3/uL (0.0-0.06); Absolute Basophil Count 0.02 10^3/uL (0.0-0.2); Absolute Eosinophil Count 0.54 10^3/uL (0.0-0.7); Absolute Lymphocyte Count 1.66 10^3/uL (1.2-3.4); Absolute Monocyte Count 0.43 10^3/uL (0.1-0.8); Absolute Neutrophil Count 6.24 10^3/uL (1.2-6.7); Basophils % 0.2; Eosinophils % 6.1; HGB 13.1 g/dL (11.2-15.7); Immature Grans % 0.2; Lymphocytes % 18.6; MCH 30.1 pg (27.0-33.0); MCHC 34.5 % (32.0-36.0); MCV 87 fL (80-95); MPV 8.9 fL (8.0-11.0); Monocytes % 4.8; Neutrophils % 70.1; Platelet Count 316 10^3/uL (130-400); RBC 4.35 10^6/uL (3.93-5.22); RDW 11.4 % (11.7-14.6); RDW-SD 36.9 fL; WBC 8.91 10^3/uL (4.4-10.8)
[2022-10-11 19:09] LABS: ALT 28 U/L (14-59); AST 19 U/L (15-37); Albumin 3.6 g/dL (3.4-5.0); Alkaline Phosphatase 98 U/L (46-116); Anion Gap 10.8 mmol/L (3-11); BUN 12 mg/dL (7-18); Bilirubin, Total 0.5 mg/dL (0.2-1.0); CO2 23.2 mmol/L (21.0-32.0); CREATININE 0.9 mg/dL (0.55-1.02); Calcium 9.4 mg/dL (8.5-10.1); Chloride 107 mmol/L (98-107); Estimated GFR 80.34 (mL/min/1.73m2); Glucose 98 mg/dL (74-106); Lipase 40 U/L (16-77); Magnesium 1.7 mg/dL (1.8-2.4); Potassium 3.5 mmol/L (3.5-5.1); Sodium 141 mmol/L (136-145); Total Protein 7.9 g/dL (6.4-8.2)
--- NOTE | 2022-10-11 19:15 | DI.RAD_ITS ---
Exam(s) XR CHEST 2V PA LATERAL EXAM: XR CHEST 2V PA LATERAL CLINICAL HISTORY: cough. TECHNIQUE: 2D digital imaging was performed. COMPARISON: No exams were available for comparison FINDINGS: 2 views: Heart size is normal. The mediastinum is not widened. Lungs are clear. No infiltrates nor pleural effusions. IMPRESSION: No acute pulmonary findings. DATA REPOSITORY: RADIATION DOSE DELIVERED:
[2022-10-11] MEDS: Normal Saline Flush 10 ML SYR IVP (19:18)
[2022-10-11] MEDS: Omnipaque 350 MG/ML 100 ML BTL IJ (19:19)
[2022-10-11] MEDS: Normal Saline - Diluent 50 ML VIAL IJ (19:20)
--- NOTE | 2022-10-11 19:53 | NUR.NOTE ---
Nursing Note: Just before CT pt started to have a strong dry cough. Entered room sat pt up straight, cough subsided before going to CT.. aware.
--- NOTE | 2022-10-11 20:03 | W.EDPROG ---
Date of service: 10/11/22 Time of Service: 20:00 Medical Decision Making 1999 -- please see Dr. Soto's note for initial presentation, exam and plan. Case endorsed to follow-up on labs and imaging and final disposition. 2109 --Labs and imaging reviewed. Normal white blood cell count. Normal electrolytes. Magnesium 1.7, will replete. Urinalysis negative for infection. CT abdomen and pelvis and chest x-ray negative for acute findings. Patient reassessed and she appears comfortable but states her pain is not significantly improved. Her abdomen is soft and she has diffuse tenderness to palpation including the bilateral lower quadrants and epigastrium but there is no rebound, rigidity or guarding or peritoneal signs. She does state that she has had watery diarrhea over the past week but states this has not been unusual since her cholecystectomy several years ago. She has never had an EGD or colonoscopy. She states she has had a one-sided oophorectomy but states she is unsure of which side. She states her pain has felt similar to previous ovarian cysts in the past but states this is more intense. Discussed that possibilities for her pain include gastritis, PUD, ovarian cyst, colitis, gastroenteritis, and also possible irritable bowel, gluten intolerance. She appears comfortable and has no signs of severe pain to indicate ovarian torsion. She has an appointment with a provider in [place] tomorrow to establish care. She is advised to discuss with them her chronic diarrhea and request referral to [facility] or [facility] for further evaluation and consideration for EGD and colonoscopy. An order for an outpatient pelvic ultrasound has also been placed and she can follow-up with her PCP for the results. We will give a dose of Bentyl here and Zofran to go and will send prescriptions for Zofran and Bentyl electronically to her pharmacy. Advised to follow up with the primary care doctor for re-evaluation. Usual and customary return precautions given prior to discharge. Medical Records Medical records reviewed: Yes I reviewed the patient's medical records. Imaging Data Radiologic Study: Radiologist's impression: CT Abdomen And Pelvis With Contrast Exam date and time: 10/11/2022 7:24 PM Age: 47 years old Clinical indication: Abdominal pain; Localized; Right; Prior surgery; Surgery date: 6+ months; Surgery type: Appendectomy, cholecystectomy, , 1 ovary removed; Patient HX: R sided abd pain TECHNIQUE: Imaging protocol: Computed tomography of the abdomen and pelvis with contrast. Radiation optimization: All CT scans at this facility use at least one of these dose optimization techniques: automated exposure control; mA and/or kV adjustment per patient size (includes targeted exams where dose is matched to clinical indication); or iterative reconstruction. Contrast material: OMNIPAQUE 350; Contrast volume: 100 ml; Contrast route: INTRAVENOUS (IV);? COMPARISON: No relevant prior studies available. FINDINGS: Liver: Normal. No mass. Gallbladder and bile ducts: Prior cholecystectomy Pancreas: Normal. No ductal dilation. Spleen: Normal. No splenomegaly. Adrenal glands: Normal. No mass. Kidneys and ureters: Right renal hypodensity presumably representing a simple cyst. No hydroureteronephrosis Stomach and bowel: Unremarkable. No obstruction. No mucosal thickening. Appendix: Prior appendectomy Intraperitoneal space: Unremarkable. No free air. No significant fluid collection. Vasculature: Unremarkable. No abdominal aortic aneurysm. Lymph nodes: Unremarkable. No enlarged lymph nodes. Urinary bladder: Unremarkable as visualized. Reproductive: Unremarkable as visualized. Bones/joints: Unremarkable. No acute fracture. Soft tissues: Unremarkable. IMPRESSION: No acute findings XR Chest Exam date and time: 10/11/2022 7:36 PM Age: 47 years old Clinical indication: Cough TECHNIQUE: Imaging protocol: Radiologic exam of the chest. Views: 2 views. COMPARISON: CT ABDOMEN PELVIS W 10/11/2022 7:24 PM FINDINGS: Lungs: Unremarkable. No consolidation. Pleural spaces: Unremarkable. No pleural effusion. No pneumothorax. Heart/Mediastinum:? Question mild cardiomegaly. Bones/joints: Unremarkable. IMPRESSION: Lab Data Lab results reviewed: Yes I reviewed the patient's lab results. Labs: Laboratory Tests Range/Units 10/11/22 10/11/22 10/11/22 18:27 18:48 18:48 WBC (4.4-10.8) 10^3/uL 8.91 RBC (3.93-5.22) 10^6/uL 4.35 Hgb (11.2-15.7) g/dL 13.1 Hct (36.0-46.0) % 38.0 MCV (80-95) fL 87 MCH (27.0-33.0) pg 30.1 MCHC (32.0-36.0) % 34.5 RDW (11.7-14.6) % 11.4 L Plt Count (130-400) 10^3/uL 316 MPV (8.0-11.0) fL 8.9 Immature Gran % 0.2 Neutrophils % 70.1 Lymphocytes % 18.6 Monocytes % 4.8 Eosinophils % 6.1 Basophils % 0.2 Nucleated RBC % (0.0-0.3) % 0.0 Absolute Neutrophils (1.2-6.7) 10^3/uL 6.24 Absolute Lymphocytes (1.2-3.4) 10^3/uL 1.66 Absolute Monocytes (0.1-0.8) 10^3/uL 0.43 Absolute Eosinophils (0.0-0.7) 10^3/uL 0.54 Absolute Basophils (0.0-0.2) 10^3/uL 0.02 Sodium (136-145) mmol/L 141 Potassium (3.5-5.1) mmol/L 3.5 Chloride (98-107) mmol/L 107 Carbon Dioxide (21.0-32.0) mmol/L 23.2 Anion Gap (3-11) mmol/L 10.8 BUN (7-18) mg/dL 12 Creatinine (0.55-1.02) mg/dL 0.9 Est GFR (CKD-EPI 2020) (mL/min/1.73m2) 80.34 Glucose (74-106) mg/dL 98 Calcium (8.5-10.1) mg/dL 9.4 Magnesium (1.8-2.4) mg/dL 1.7 L Total Bilirubin (0.2-1.0) mg/dL 0.5 AST (15-37) U/L 19 ALT (14-59) U/L 28 Alkaline Phosphatase (46-116) U/L 98 Total Protein (6.4-8.2) g/dL 7.9 Albumin (3.4-5.0) g/dL 3.6 Lipase (16-77) U/L 40 Urine Color (Yellow) Yellow Urine Clarity (Clear) Clear Urine pH (5-8) 7.0 Ur Specific [place] (1.005-1.025) 1.025 Urine Protein (Negative) mg/dL Negative Urine Ketones (Negative) mg/dL Negative Urine Blood (Negative) Trace-intact H Urine Nitrite (Negative) Negative Urine Bilirubin (Negative) Negative Urine Urobilinogen (Up to 0.2) mg/dL 2.0 H Ur Leukocyte Esterase (Negative) Negative Urine RBC (0-2) HPF 0-2 Urine WBC (0-5) HPF Negative Ur Epithelial Cells (Negative) HPF Few Urine Crystals (Negative) HPF Few Amorphous Urine Bacteria (Negative) HPF Rare Urine Casts (Negative) LPF 0-2 Hyaline Urine Mucus (Negative) Moderate Ur Culture Indicated? No Urine Glucose (Negative) mg/dL Negative Sign Out Sign Out Data: Sign Out Comment: Right sided abdominal pain, pending ct and reassessment. Did have an episode of coughing, lungs were clear, cxr pending Last updated by Derek Soto MD at 10/11/22 19:31 Discharge Plan Disposition Patient Disposition: Home Condition: Stable Discharge Details Clinical Impression: Abdominal pain Primary Care Provider: Samra Pardo ED Provider: Luly Flower Home Meds and New Rx's Prescriptions: New dicyclomine 20 mg tablet 20 mg PO TID PRN (Reason: abdominal pain) Qty: 10 0RF ondansetron 4 mg tablet,disintegrating 4 mg PO TID PRN (Reason: nausea and vomiting) Qty: 6 0RF Continued valacyclovir 1 gram Tablet 1,000 mg PO DAILY topiramate 25 mg Tablet 25 mg PO BID norethindrone acetate 5 mg Tablet 5 mg PO DAILY Patient Comments: not taking epinephrine 0.3 mg/0.3 mL Auto-Injector 0.3 ml IM PRN PRN duloxetine 60 mg Capsule, Delayed Rel Sprinkle 120 mg PO DAILY propranolol 60 mg capsule,extended release 24 hr 60 mg PO DAILY Patient Comments: TAKE ONE CAPSULE BY MOUTH EVERY DAY ketorolac 10 mg tablet 10 mg PO TID PRN (Reason: pain) Qty: 10 0RF prochlorperazine maleate [Compazine] 10 mg tablet 10 mg PO Q6H PRNQty: 10 0RF Discharge Instructions Instructions: Abdominal Pain (ED) Additional Instructions: Your blood tests and imaging today are reassuring and show no evidence of acute concerning or significant findings. Drink plenty of fluids and get plenty of rest. Prescriptions for nausea and pain medication have been sent electronically to your pharmacy to take as directed. Follow-up with your scheduled appointment with your new primary care provider tomorrow for reevaluation and for referral to gastroenterology for further evaluation if your symptoms do not improve or worsen. An order for an outpatient pelvic ultrasound has been placed. Contact the radiology department for scheduling of this test. Return immediately to the emergency department if you develop any worsening or new concerning symptoms. Discharge Data Discharge Date/Time-TO BE ENTERED AT DEPARTURE: 10/11/22 22:00 Discharge Physician: Luly Flower
--- NOTE | 2022-10-11 20:14 | DI.VRAD_ITS ---
PROCEDURE INFORMATION: Exam: XR Chest Exam date and time: 10/11/2022 7:36 PM Age: 47 years old Clinical indication: Cough TECHNIQUE: Imaging protocol: Radiologic exam of the chest. Views: 2 views. COMPARISON: CT ABDOMEN PELVIS W 10/11/2022 7:24 PM FINDINGS: Lungs: Unremarkable. No consolidation. Pleural spaces: Unremarkable. No pleural effusion. No pneumothorax. Heart/Mediastinum: Question mild cardiomegaly. Bones/joints: Unremarkable. IMPRESSION: No acute findings. Question mild cardiomegaly Dictated and Authenticated by: Mark Mak MD. Ordering:JUDAH Reed MD
--- NOTE | 2022-10-11 20:17 | DI.VRAD_ITS ---
PROCEDURE INFORMATION: Exam: CT Abdomen And Pelvis With Contrast Exam date and time: 10/11/2022 7:24 PM Age: 47 years old Clinical indication: Abdominal pain; Localized; Right; Prior surgery; Surgery date: 6+ months; Surgery type: Appendectomy, cholecystectomy, , 1 ovary removed; Patient HX: R sided abd pain TECHNIQUE: Imaging protocol: Computed tomography of the abdomen and pelvis with contrast. Radiation optimization: All CT scans at this facility use at least one of these dose optimization techniques: automated exposure control; mA and/or kV adjustment per patient size (includes targeted exams where dose is matched to clinical indication); or iterative reconstruction. Contrast material: OMNIPAQUE 350; Contrast volume: 100 ml; Contrast route: INTRAVENOUS (IV); COMPARISON: No relevant prior studies available. FINDINGS: Liver: Normal. No mass. Gallbladder and bile ducts: Prior cholecystectomy Pancreas: Normal. No ductal dilation. Spleen: Normal. No splenomegaly. Adrenal glands: Normal. No mass. Kidneys and ureters: Right renal hypodensity presumably representing a simple cyst. No hydroureteronephrosis Stomach and bowel: Unremarkable. No obstruction. No mucosal thickening. Appendix: Prior appendectomy Intraperitoneal space: Unremarkable. No free air. No significant fluid collection. Vasculature: Unremarkable. No abdominal aortic aneurysm. Lymph nodes: Unremarkable. No enlarged lymph nodes. Urinary bladder: Unremarkable as visualized. Reproductive: Unremarkable as visualized. Bones/joints: Unremarkable. No acute fracture. Soft tissues: Unremarkable. IMPRESSION: No acute findings Dictated and Authenticated by: Mark Mak MD. Ordering:JUDAH Reed MD
[2022-10-11 20:32] VITALS: BP 108/62; PULSE 81; RESP 20; TEMP 36.6; O2SAT 99
[2022-10-11] MEDS: Magnesium Oxide 400 MG TAB PO (21:53)
[2022-10-11] MEDS: Dicyclomine 20 MG TAB PO (21:53)
[2022-10-11] MEDS: Ondansetron O.D.T. 4 MG TABEF, 3 TABS/BTL PO (21:54)
[2022-10-11 21:56] VITALS: BP 137/82; PULSE 83; RESP 16; TEMP 36.6; O2SAT 99
== END 2022-10-11 22:00 | disposition home or self-care (01) ==
PROVIDERS: Emergency Medicine; Emergency Provider Physician Assistant; PCP Student in an Organized Health Care Education/Training Program
DX: R10.31 Right lower quadrant pain (principal); R10.813 Right lower quadrant abdominal tenderness; R10.811 Right upper quadrant abdominal tenderness; Z90.49 Acquired absence of other specified parts of digestive tract
CPT/HCPCS: 80053; 81025; 83690; 96361; 96374; 96375; 99285; 71046; 74177; 81003; 81015; 83735; 85025; 99284; J1885; J2405; J3490